=== PATIENT | female | born 1975 | race Caucasian/White ===

== ENCOUNTER 2019-08-03 07:22 | Inpatient (IN) | payer OTHER ==
[2019-08-02 10:56] LABS: BLOOD UREA NITROGEN,BUN 14 mg/dL (7.0-18.0); CARBON DIOXIDE,CO2 28.6 mmol/L (21.0-32.0); CHLORIDE,CL 104 mmol/L (98-107); GLUCOSE RANDOM 99 mg/dL (74-106); POTASSIUM,K 3.9 mmol/L (3.5-5.1); SODIUM,NA 139 mmol/L (136-145)
[~2019-08-03 07:22] MED LIST: Glycopyrrolate 0.2 MG/ML SDV ONE; Ketorolac 30 MG/ML SDV ONE; Lidocaine 2% 5 ML SDV ONE; Midazolam 1 MG/ML 2 ML SDV ONE; Ondansetron 4 MG/2 ML SDV ONE; Propofol 200 MG/20 ML SDV ONE; Rocuronium 100 MG/10 ML Syringe ONE; Sodium Chloride 0.9% 10 ML SDV IV PRN; Sodium Chloride 0.9% 10 ML Syringe FLUSH PRN; Sodium Chloride 0.9% 2.5 ML Syringe FLUSH PRN; Sugammadex Sodium 200 MG/2 ML VIAL ONE; ceFAZolin 2 GM in Premix Bag 1 BAG IV ONE; fentaNYL 250 MCG/5 ML SDV ONE
[2019-08-03] MEDS ORDERED: Sodium Chloride 0.9% 20 ML ONE (07:35)
[2019-08-03] MEDS ORDERED: ceFAZolin 1 GM Vial ONE (07:35)
[2019-08-03] MEDS: Lactated Ringers 1,000 ML IV SCH ×3 (08:15→22:08)
[2019-08-03] MEDS ORDERED: Scopolamine 1.5 MG Transdermal Patch ONE (08:18)
--- NOTE | 2019-08-03 08:18 | PCM.PREANE ---
Preanesthetic Assessment - Anesthesia/Transfusion/Family Hx Anesthesia History: Prior Anesthesia Without Reaction Family History of Anesthesia Reaction: No Transfusion History: No Prior Transfusion(s) Intubation History: Unknown - Review of Systems General: No Symptoms Pulmonary: No Symptoms Cardiovascular: No Symptoms Gastrointestinal: No Symptoms Neurological: No Symptoms Other: Reports: None - Physical Assessment Height: 5 ft 1 in Weight: 98.883 kg ASA Class: 2 Mental Status: Alert & Oriented x3 Airway Class: Mallampati = 3 Dentition: Reports: Normal Dentition Thyro-Mental Finger Breadths: 3 Mouth Opening Finger Breadths: 3 ROM/Head Extension: Full Lungs: Clear to Auscultation, Normal Respiratory Effort Cardiovascular: Regular Rate, Regular Rhythm - Lab Values: Laboratory Last Values WBC 6.34 K/uL (4.0-11.0) 08/02/19 10:32 RBC 4.74 M/uL (4.30-5.90) 08/02/19 10:32 Hgb 10.3 g/dL (12.0-16.0) L 08/02/19 10:32 Hct 35.9 % (36.0-46.0) L 08/02/19 10:32 MCV 75.7 fL (80.0-98.0) L 08/02/19 10:32 MCH 21.7 pg (27.0-32.0) L 08/02/19 10:32 MCHC 28.7 g/dL (31.0-37.0) L 08/02/19 10:32 RDW Std Deviation 57.6 fl (28.0-62.0) 08/02/19 10:32 RDW Coeff of Germán 21 % (11.0-15.0) H 08/02/19 10:32 Plt Count 412 K/uL (150-400) H 08/02/19 10:32 MPV 9.30 fL (7.40-12.00) 08/02/19 10:32 Nucleated RBC % 0.0 /100WBC 08/02/19 10:32 Nucleated RBCs # 0 K/uL 08/02/19 10:32 Sodium 139 mmol/L (136-145) 08/02/19 10:32 Potassium 3.9 mmol/L (3.5-5.1) 08/02/19 10:32 Chloride 104 mmol/L (98-107) 08/02/19 10:32 Carbon Dioxide 28.6 mmol/L (21.0-32.0) 08/02/19 10:32 BUN 14 mg/dL (7.0-18.0) 08/02/19 10:32 Creatinine 0.8 mg/dL (0.6-1.0) 08/02/19 10:32 Est Cr Clr Drug Dosing 66.31 mL/min 08/02/19 10:32 Estimated GFR (MDRD) > 60.0 ml/min 08/02/19 10:32 Glucose 99 mg/dL (74-106) 08/02/19 10:32 Calcium 9.0 mg/dL (8.5-10.1) 08/02/19 10:32 HCG, Qual NEGATIVE (NEG) 08/02/19 10:32 Blood Type O POSITIVE 08/02/19 10:32 Antibody Screen NEGATIVE 08/02/19 10:32 - Allergies Allergies/Adverse Reactions: Allergies Allergy/AdvReac Type Severity Reaction Status Date / Time No Known Allergies Allergy Verified 07/31/19 13:08 - Blood Blood Available: No - Anesthesia Plan Pre-Op Medication Ordered: None - Acknowledgements Anesthesia Type Planned: General Anesthesia Pt an Appropriate Candidate for the Planned Anesthesia: Yes Alternatives and Risks of Anesthesia Discussed w Pt/Guardian: Yes Pt/Guardian Understands and Agrees with Anesthesia Plan: Yes PreAnesthesia Questionnaire HEENT History: Reports: None Cardiovascular History: Reports: Hypertension Respiratory History: Reports: Sleep Apnea Other Respiratory History: uses CPAP Gastrointestinal History: Reports: GERD Genitourinary History: Reports: Renal Calculus DETECTIVE NARCOTICS AND VICE History: Reports: Musculoskeletal History: Reports: None Neurological History: Reports: None Psychiatric History: Reports: None Endocrine/Metabolic History: Reports: Obesity/BMI 30+ (BMI 41.2) Hematologic History: Reports: None Immunologic History: Reports: None Oncologic (Cancer) History: Reports: None Dermatologic History: Reports: None - Past Surgical History Head Surgeries/Procedures: Reports: None HEENT Surgical History: Reports: None Cardiovascular Surgical History: Reports: None Respiratory Surgical History: Reports: None GI Surgical History: Reports: None Female Surgical History: Reports: Section (x2), Kidney stone extraction (x2) Endocrine Surgical History: Reports: None Neurological Surgical History: Reports: None Musculoskeletal Surgical History: Reports: None Oncologic Surgical History: Reports: None Dermatological Surgical History: Reports: None - SUBSTANCE USE Smoking Status *Q: Current Every Day Smoker (1/2 ppd) Tobacco Use Within Last Twelve Months: Cigarettes - HOME MEDS Home Medications: Home Meds Lisinopril 20 mg PO DAILY 08/19/14 [History] Omeprazole 20 mg PO DAILY PRN 08/01/19 [History] - CURRENT (IN HOUSE) MEDS Current Meds: Current Medications Sodium Chloride (Saline Flush) 10 ml FLUSH ASDIRECTED PRN PRN Reason: Keep Vein Open Sodium Chloride (Saline Flush) 2.5 ml FLUSH ASDIRECTED PRN PRN Reason: Keep Vein Open Sodium Chloride (Normal Saline) 10 ml IV ASDIRECTED PRN PRN Reason: IV Use Discontinued Medications Cefazolin Sodium (Ancef) Confirm Administered Dose 2 gm .ROUTE .STK-MED ONE Stop: 08/03/19 07:36 Fentanyl (Sublimaze) Confirm Administered Dose 250 mcg .ROUTE .STK-MED ONE Stop: 08/03/19 07:08 Glycopyrrolate (Robinul) Confirm Administered Dose 0.2 mg .ROUTE .STK-MED ONE Stop: 08/03/19 07:09 Cefazolin Sodium/Dextrose 2 gm (/ Premix) 50 mls @ 100 mls/hr IV ONETIME ONE Stop: 08/02/19 09:31 Sodium Chloride (Normal Saline) Confirm Administered Dose 20 mls @ as directed .ROUTE .STK-MED ONE Stop: 08/03/19 07:36 Ketorolac Tromethamine (Toradol) Confirm Administered Dose 30 mg .ROUTE .STK- MED ONE Stop: 08/03/19 07:09 Lidocaine (Xylocaine-Mpf 2%) Confirm Administered Dose 5 ml .ROUTE .STK-MED ONE Stop: 08/03/19 07:09 Midazolam HCl (Versed 1 Mg/Ml) Confirm Administered Dose 2 mg .ROUTE .STK-MED ONE Stop: 08/03/19 07:08 Ondansetron HCl (Zofran) Confirm Administered Dose 4 mg .ROUTE .STK-MED ONE Stop: 08/03/19 07:09 Propofol (Diprivan 20 Ml) Confirm Administered Dose 200 mg .ROUTE .STK-MED ONE Stop: 08/03/19 07:08 Rocuronium [place] (Zemuron) Confirm Administered Dose 100 mg .ROUTE .STK-MED ONE Stop: 08/03/19 07:09 Sugammadex Sodium (Bridion) Confirm Administered Dose 200 mg .ROUTE .STK-MED ONE Stop: 08/03/19 07:02
[2019-08-03] MEDS ORDERED: Acetaminophen 1,000 MG in Premix Bag 1 BAG IV PRN (08:49)
[2019-08-03] MEDS ORDERED: HYDROmorphone 2 MG/ML Syringe ONE ×2 (08:59→09:49)
[2019-08-03] MEDS ORDERED: Rocuronium 100 MG/10 ML Syringe ONE (09:06)
[2019-08-03] MEDS ORDERED: Promethazine 25 MG/ML SDV IM PRN (11:14)
[2019-08-03] MEDS ORDERED: Ondansetron 4 MG/2 ML SDV IVPUSH PRN (11:14)
[2019-08-03] MEDS ORDERED: Acetaminophen/oxyCODONE 325-5 MG Tab PO PRN (11:14)
[2019-08-03] MEDS ORDERED: Ketorolac 30 MG/ML SDV IVPUSH ONE (11:14)
--- NOTE | 2019-08-03 11:18 | PCM.OPNOTE ---
- General Post-Op/Procedure Note Date of Surgery/Procedure: 08/03/19 Operative Procedure(s): Dignostic laparoscopy. open JONATHAN,BSO cystoscopy. Pre Op Diagnosis: bleeding Post-Op Diagnosis: Same Primary Surgeon: Yosi Sagastume EBL in mLs: 200 Complications: None Condition: Good
[2019-08-03] MEDS ORDERED: HYDROmorphone 2 MG/ML Syringe IVPUSH PRN (11:38)
[2019-08-03] MEDS: fentaNYL 100 MCG/2 ML SDV IVPUSH PRN ×2 (11:49→12:01)
[2019-08-03] MEDS ORDERED: fentaNYL 100 MCG/2 ML SDV ONE (12:06)
--- NOTE | 2019-08-03 13:05 | PCM.POSTAN ---
POST ANESTHESIA ASSESSMENT - MENTAL STATUS Mental Status: Alert (3), Oriented - VITAL SIGNS Vital Signs: Last Vital Signs Temp 36 C L 08/03/19 11:23 Pulse 67 08/03/19 12:52 Resp 11 L 08/03/19 12:52 BP 107/65 08/03/19 12:52 Pulse Ox 99 08/03/19 12:52 - RESPIRATORY Respiratory Status: Respiratory Rate WNL, Airway Patent, O2 Saturation Stable - CARDIOVASCULAR CV Status: Pulse Rate WNL, Blood Pressure Stable - GASTROINTESTINAL GI Status: No Symptoms - PAIN Pain Score: 3 - POST OP HYDRATION Hydration Status: Adequate & Stable - OBSERVATIONS Free Text/Narrative:: No anesthesia problems
[2019-08-03] MEDS: Morphine 4 MG/ML Syringe IVPUSH PRN ×2 (15:11→22:11)
[2019-08-03] MEDS: Ketorolac 30 MG/ML SDV IVPUSH PRN (19:23)
[2019-08-04] MEDS: Ketorolac 30 MG/ML SDV IVPUSH PRN (02:05)
[2019-08-04] MEDS: Acetaminophen/oxyCODONE 325-5 MG Tab PO PRN ×3 (02:47→11:54)
[2019-08-04] MEDS: Morphine 4 MG/ML Syringe IVPUSH PRN ×2 (05:22→15:45)
[2019-08-04] MEDS: Lactated Ringers 1,000 ML IV SCH (06:09)
[2019-08-04 06:20] LABS: BLOOD UREA NITROGEN,BUN 10 mg/dL (7.0-18.0); CARBON DIOXIDE,CO2 26.5 mmol/L (21.0-32.0); CHLORIDE,CL 103 mmol/L (98-107); GLUCOSE RANDOM 105 mg/dL (74-106); SODIUM,NA 135 mmol/L (136-145)
--- NOTE | 2019-08-04 07:15 | PCM48HPAN ---
Post Anesthesia Note - EVALUATION WITHIN 48HRS OF ANESTHETIC Vital Signs in Normal Range: Yes Patient Participated in Evaluation: Yes Respiratory Function Stable: Yes Airway Patent: Yes Cardiovascular Function Stable: Yes Hydration Status Stable: Yes Pain Control Satisfactory: Yes (Having pain. Analgesics help. Analgesics being given.) Nausea and Vomiting Control Satisfactory: Yes Mental Status Recovered: Yes Vital Signs: Last Vital Signs Temp 36.0 C L 08/04/19 04:27 Pulse 78 08/04/19 04:27 Resp 18 08/04/19 04:27 BP 141/60 H 08/04/19 04:27 Pulse Ox 95 08/04/19 04:27 - COMMENTS/OBSERVATIONS Free Text/Narrative:: Doing well considering surgery.
[2019-08-04 12:55] VITALS: BP 146/73; PULSE 96
--- NOTE | 2019-08-04 13:25 | OR ---
SURGEON: Yosi Sagastume MD DATE OF PROCEDURE: 08/03/2019 PREOPERATIVE DIAGNOSES: Menometrorrhagia, pelvic pain, fibroid uterus. POSTOPERATIVE DIAGNOSES: Menometrorrhagia, pelvic pain, fibroid uterus. OPERATION PERFORMED: An attempted laparoscopic hysterectomy, aborted because of severe pelvic adhesion, and then a total abdominal hysterectomy with bilateral salpingo- oophorectomy through transverse Maylard skin incision and cystoscopy. 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 ANESTHESIA: General. Varinder Corley and Dr. Finnegan. ESTIMATED BLOOD LOSS: 250 mL. COMPLICATIONS: None. FINDING: The laparoscopic finding shows a very dense adhesion between the anterior part of the uterus and the bladder where the omentum is completely adhesed and obstructing the clear view of proceeding with the surgery. There was omental adhesion around the right tube and ovary and there is adhesion in the cul-de- sac. PROCEDURE IN DETAIL: The patient was brought to the OR, properly identified, and after adequate level of general anesthesia, the patient was placed in lithotomy position with access to the abdomen and the vagina. Weighted speculum was placed in the vagina and then the Yi catheter was placed in the bladder and then the Cooper[employer] colpotomizer and manipulator were placed in the uterus for manipulation. The operation shifted abdominally. Stab wound done beneath the umbilicus. The Veress needle was placed in the peritoneal cavity and that cavity insufflated with 3.5 L of carbon dioxide, and then utilizing the Visiport technique, 5 mm trocar is inserted and then 5 mm scope through that trocar. Under direct vision, a 10/12 trocar was placed in the right iliac fossa. At this time, there was a dense adhesion as described in the finding. I attempted to lyse the adhesion hopefully achieving the hysterectomy laparoscopically, but after a while, it became apparent that the vision is totally obstructed and I could not accomplish laparoscopic hysterectomy completely safe, so we abandoned this route and we proceeded to the total abdominal hysterectomy and after repositioning the patient, low transverse skin incision through the old scar of her section was done. Francis fascia and rectus fascia were opened in the direction of the incision and then the inferior epigastric vessels is clamped and transected and suture ligated bilaterally after retracting the rectus muscle medially. Once that was done, then the rectus muscle is cut transversely, utilizing the electrocautery. Once this was done, then the peritoneal cavity was entered. After we entered the peritoneal cavity, I explored the abdomen, making sure there was no issue and there was no injury from the brief laparoscopic part of the procedure and it became apparent there was none, then I used a Metzenbaum and with sharp and blunt and meticulous slow lysing of the adhesions, the omentum was lysed from its attachment to the bladder and to the uterus and to the right tubes and ovary. Once I was able to do that, then the abdominal pack is placed to pack the intestine and omentum away from the operative field. We proceeded by doing the hysterectomy. The round ligament from both sides was suture ligated with 2-0 Vicryl pop-off and then transected and superior pedicle was dissected and the superior pedicle was clamped with curved Zeppelin. The tubes and ovary included with the specimen and the superior pedicle was tied twice with 0 Vicryl on both sides and the anterior leaf of the broad ligament dissected downward medially and then the bladder dissected completely away from the operative field. The uterine vessel is taken at this time using curved Zeppelin, transected, and suture ligated with 2-0 Vicryl pop-off and the uterosacral ligament was taken with a straight Zeppelin, transected, and suture ligated with 2-0 Vicryl pop-off. At this time, I entered the vagina anteriorly and using Jean scissors, circular incision around the vagina was done, detaching the cervix from its attachment to the vagina. The uterus and both tubes and ovary were removed and then we proceeded to close the vaginal cuff with 2-0 Vicryl interrupted [id number] sutures. Once that was done, I went back and checked. The ureter was felt to be intact and there was no oozing or bleeding; however, to make sure that there was no ureteric injury, we asked the anesthesiologist to give the patient fluorescein and I did cystoscopy. The bladder was intact. Both ureteric orifices were seen with the dye coming from both of them; thus, satisfied with these findings and then reinspection of the operative field shows no oozing, no bleeding. The vaginal pack was removed and the abdominal wall is closed in layers, the peritoneum with 3-0 Vicryl and the rectus fascia with #1 PDS double strand continuous, the Francis's fascia with 3-0 Vicryl, and the skin with skin clip, Insorb, and Dermabond. The instrument and sponge count were correct. The patient tolerated the procedure well, went to recovery room in stable general condition. RADHA PARDO /[id number]
--- NOTE | 2019-08-04 14:43 | PCM.SURGPN ---
- General Info Date of Service: 08/04/19 POD#: 1 Functional Status: Reports: Pain Controlled - Review of Systems General: Reports: No Symptoms HEENT: Reports: No Symptoms Pulmonary: Reports: No Symptoms Cardiovascular: Reports: No Symptoms Gastrointestinal: Reports: No Symptoms Genitourinary: Reports: No Symptoms Musculoskeletal: Reports: No Symptoms Skin: Reports: No Symptoms Neurological: Reports: No Symptoms Psychiatric: Reports: No Symptoms - Patient Data Vitals - Most Recent: Last Vital Signs Temp 37.6 C 08/04/19 12:53 Pulse 96 08/04/19 12:53 Resp 18 08/04/19 12:53 BP 146/73 H 08/04/19 12:53 Pulse Ox 95 08/04/19 12:53 Weight - Most Recent: 98.883 kg I&O - Last 24 Hours: Intake & Output 08/03/19 08/04/19 08/04/19 22:59 06:59 14:59 Intake Total 1250 2441 Output Total 830 2500 Balance 420 -59 Lab Results Last 24 Hrs: Laboratory Results - last 24 hr 08/04/19 08/04/19 Range/Units 05:05 05:05 WBC 7.37 (4.0-11.0) K/uL RBC 3.84 L (4.30-5.90) M/uL Hgb 8.6 L (12.0-16.0) g/dL Hct 28.9 L (36.0-46.0) % MCV 75.3 L (80.0-98.0) fL MCH 22.4 L (27.0-32.0) pg MCHC 29.8 L (31.0-37.0) g/dL RDW Std Deviation 56.3 (28.0-62.0) fl RDW Coeff of Germán 21 H (11.0-15.0) % Plt Count 375 (150-400) K/uL MPV 9.60 (7.40-12.00) fL Neut % (Auto) 64.8 (48.0-80.0) % Lymph % (Auto) 24.3 (16.0-40.0) % [place]ison % (Auto) 9.6 (0.0-15.0) % Eos % (Auto) 1.2 (0.0-7.0) % Baso % (Auto) 0.1 (0.0-1.5) % Neut # (Auto) 4.8 (1.4-5.7) K/uL Lymph # (Auto) 1.8 (0.6-2.4) K/uL [place] # (Auto) 0.7 (0.0-0.8) K/uL Eos # (Auto) 0.1 (0.0-0.7) K/uL Baso # (Auto) 0.0 (0.0-0.1) K/uL Nucleated RBC % 0.0 /100WBC Nucleated RBCs # 0 K/uL Sodium 135 L (136-145) mmol/L Potassium 4.0 (3.5-5.1) mmol/L Chloride 103 (98-107) mmol/L Carbon Dioxide 26.5 (21.0-32.0) mmol/L BUN 10 (7.0-18.0) mg/dL Creatinine 0.8 (0.6-1.0) mg/dL Est Cr Clr Drug Dosing 66.31 mL/min Estimated GFR (MDRD) > 60.0 ml/min Glucose 105 (74-106) mg/dL Calcium 8.3 L (8.5-10.1) mg/dL Med Orders - Current: Current Medications Acetaminophen 1,000 mg/ Premix 100 mls @ 400 mls/hr IV Q6H PRN PRN Reason: Pain Last Admin: 08/03/19 12:41 Dose: 400 mls/hr Lactated Ringer's (Ringers, Lactated) 1,000 mls @ 125 mls/hr IV ASDIRECTED [facility] Last Admin: 08/04/19 06:09 Dose: 125 mls/hr Ketorolac Tromethamine (Toradol) 30 mg IVPUSH Q6H PRN PRN Reason: Pain (severe 7-10) Stop: 08/08/19 11:14 Last Admin: 08/04/19 02:05 Dose: 30 mg Morphine Sulfate (Morphine) 4 mg IVPUSH Q2H PRN PRN Reason: Pain (severe 7-10) Last Admin: 08/04/19 05:22 Dose: 4 mg Ondansetron HCl (Zofran) 4 mg IVPUSH Q6H PRN PRN Reason: Nausea/Vomiting Oxycodone/Acetaminophen (Percocet 325-5 Mg) 1 tab PO Q4H PRN PRN Reason: Pain (moderate 4-6) Last Admin: 08/04/19 11:54 Dose: 1 tab Oxycodone/Acetaminophen (Percocet 325-5 Mg) 2 tab PO Q4H PRN PRN Reason: Pain (moderate 4-6) Promethazine HCl (Phenergan) 25 mg IM Q6H PRN PRN Reason: Nausea/Vomiting Sodium Chloride (Saline Flush) 2.5 ml FLUSH ASDIRECTED PRN PRN Reason: Keep Vein Open Sodium Chloride (Normal Saline) 10 ml IV ASDIRECTED PRN PRN Reason: IV Use Discontinued Medications Cefazolin Sodium (Ancef) Confirm Administered Dose 2 gm .ROUTE .STK-MED ONE Stop: 08/03/19 07:36 Fentanyl (Sublimaze) Confirm Administered Dose 250 mcg .ROUTE .STK-MED ONE Stop: 08/03/19 07:08 Fentanyl (Sublimaze) 50 mcg IVPUSH Q5M PRN PRN Reason: Pain Last Admin: 08/03/19 12:01 Dose: 50 mcg Fentanyl (Sublimaze) Confirm Administered Dose 100 mcg .ROUTE .STK-MED ONE Stop: 08/03/19 12:07 Last Admin: 08/03/19 13:41 Dose: Not Given Glycopyrrolate (Robinul) Confirm Administered Dose 0.2 mg .ROUTE .STK-MED ONE Stop: 08/03/19 07:09 Hydromorphone HCl (Dilaudid) Confirm Administered Dose 2 mg .ROUTE .STK-MED ONE Stop: 08/03/19 09:00 Hydromorphone HCl (Dilaudid) Confirm Administered Dose 2 mg .ROUTE .STK-MED ONE Stop: 08/03/19 09:50 Hydromorphone HCl (Dilaudid) 1 - 2 mg IVPUSH ONETIME PRN PRN Reason: Pain Cefazolin Sodium/Dextrose 2 gm (/ Premix) 50 mls @ 100 mls/hr IV ONETIME ONE Stop: 08/02/19 09:31 Last Admin: 08/03/19 13:41 Dose: Not Given Sodium Chloride (Normal Saline) Confirm Administered Dose 20 mls @ as directed .ROUTE .STK-MED ONE Stop: 08/03/19 07:36 Acetaminophen (Ofirmev) Confirm Administered Dose 100 mls @ as directed .ROUTE .STK-MED ONE Stop: 08/03/19 12:27 Ketorolac Tromethamine (Toradol) Confirm Administered Dose 30 mg .ROUTE .STK- MED ONE Stop: 08/03/19 07:09 Ketorolac Tromethamine (Toradol) 30 mg IVPUSH ONETIME ONE Stop: 08/03/19 11:15 Last Admin: 08/03/19 10:50 Dose: Not Given Lidocaine (Xylocaine-Mpf 2%) Confirm Administered Dose 5 ml .ROUTE .STK-MED ONE Stop: 08/03/19 07:09 Midazolam HCl (Versed 1 Mg/Ml) Confirm Administered Dose 2 mg .ROUTE .STK-MED ONE Stop: 08/03/19 07:08 Ondansetron HCl (Zofran) Confirm Administered Dose 4 mg .ROUTE .STK-MED ONE Stop: 08/03/19 07:09 Propofol (Diprivan 20 Ml) Confirm Administered Dose 200 mg .ROUTE .STK-MED ONE Stop: 08/03/19 07:08 Rocuronium [place] (Zemuron) Confirm Administered Dose 100 mg .ROUTE .STK-MED ONE Stop: 08/03/19 07:09 Rocuronium [place] (Zemuron) Confirm Administered Dose 100 mg .ROUTE .STK-MED ONE Stop: 08/03/19 09:07 Scopolamine (Transderm-Scop) Confirm Administered Dose 1.5 mg .ROUTE .STK-MED ONE Stop: 08/03/19 08:19 Last Admin: 08/03/19 08:20 Dose: 1.5 mg Sodium Chloride (Saline Flush) 10 ml FLUSH ASDIRECTED PRN PRN Reason: Keep Vein Open Sugammadex Sodium (Bridion) Confirm Administered Dose 200 mg .ROUTE .STK-MED ONE Stop: 08/03/19 07:02 - Exam Wound/Incisions: Healing Well General: Alert, Oriented HEENT: Pupils Equal Neck: Supple Lungs: Clear to Auscultation, Normal Respiratory Effort Cardiovascular: Regular Rate, Regular Rhythm GI/Abdominal Exam: Normal Bowel Sounds, Soft, Non-Tender, No Organomegaly, No Distention, No Abnormal Bruit, No Mass, Pelvis Stable Extremities: Normal Inspection, Normal Range of Motion, Non-Tender, No Pedal Edema, Normal Capillary Refill Skin: Warm, Dry, Intact Neurological: No New Focal Deficit Psy/Mental Status: Alert, Normal Affect, Normal Mood Sepsis Event Note - Evaluation Sepsis Screening Result: No Definite Risk - Focused Exam Vital Signs: Vital Signs Temp Pulse Resp BP Pulse Ox 08/04/19 12:53 37.6 C 96 18 146/73 H 95 08/04/19 08:00 36.9 C 86 18 128/69 96 08/04/19 04:27 36.0 C L 78 18 141/60 H 95 Date Exam was Performed: 08/04/19 Time Exam was Performed: 14:41 - Problem List Review Problem List Initiated/Reviewed/Updated: Yes - My Orders Last 24 Hours: Active Orders 24 hr Category Date Time Status Regular Diet [DIET] Diet 08/03/19 Dinner Active Medication Orders Acetaminophen 1,000 mg/ Premix 100 mls @ 400 mls/hr IV Q6H PRN PRN Reason: Pain Last Admin: 08/03/19 12:41 Dose: 400 mls/hr Lactated Ringer's (Ringers, Lactated) 1,000 mls @ 125 mls/hr IV ASDIRECTED [facility] Last Admin: 08/04/19 06:09 Dose: 125 mls/hr Infusion: 08/04/19 06:08 Dose: 125 mls/hr Admin: 08/03/19 22:08 Dose: 125 mls/hr Infusion: 08/03/19 21:22 Dose: 125 mls/hr Admin: 08/03/19 13:22 Dose: 125 mls/hr Infusion: 08/03/19 13:22 Dose: 125 mls/hr Admin: 08/03/19 08:15 Dose: 125 mls/hr Ketorolac Tromethamine (Toradol) 30 mg IVPUSH Q6H PRN PRN Reason: Pain (severe 7-10) Stop: 08/08/19 11:14 Last Admin: 08/04/19 02:05 Dose: 30 mg Admin: 08/03/19 19:23 Dose: 30 mg Morphine Sulfate (Morphine) 4 mg IVPUSH Q2H PRN PRN Reason: Pain (severe 7-10) Last Admin: 08/04/19 05:22 Dose: 4 mg Admin: 08/03/19 22:11 Dose: 4 mg Admin: 05/21/20 15:11 Dose: 4 mg Ondansetron HCl (Zofran) 4 mg IVPUSH Q6H PRN PRN Reason: Nausea/Vomiting Oxycodone/Acetaminophen (Percocet 325-5 Mg) 1 tab PO Q4H PRN PRN Reason: Pain (moderate 4-6) Last Admin: 08/04/19 11:54 Dose: 1 tab Admin: 08/04/19 06:54 Dose: 1 tab Admin: 08/04/19 02:47 Dose: 1 tab Oxycodone/Acetaminophen (Percocet 325-5 Mg) 2 tab PO Q4H PRN PRN Reason: Pain (moderate 4-6) Promethazine HCl (Phenergan) 25 mg IM Q6H PRN PRN Reason: Nausea/Vomiting Sodium Chloride (Saline Flush) 2.5 ml FLUSH ASDIRECTED PRN PRN Reason: Keep Vein Open Sodium Chloride (Normal Saline) 10 ml IV ASDIRECTED PRN PRN Reason: IV Use - Assessment Assessment (Free Text/Narrative):: Status post exploratory laparotomy for total abdominal hysterectomy and bilateral salpingo-oophorectomy postoperative day #1 the patient is afebrile. Vital signs stable she is on regular diet she is voiding without any problem. - Plan Plan (Free Text/Narrative):: The patient expressed her desire to go home there is no contraindication for that prescription for Narco 5/325 for postoperative pain is given to the patient the postoperative instruction is given to her there is no restriction on her diet she is coming to the office sometime next week for late postoperative examination. The patient instructed if she have any problem she can come back to the hospital
== END 2019-08-04 19:01 | disposition home or self-care (01) | DRG 743 ==
LOC: MW.SDS 07:22 → MW.MS 11:14
PROVIDERS: ADMIT Obstetrics & Gynecology; ATTEND Obstetrics & Gynecology
PROC: 0UT90ZZ Resection of Uterus, Open Approach (ICD-10-PCS; principal; 2019-08-03)
PROC: 0UB70ZZ Excision of Bilateral Fallopian Tubes, Open Approach (ICD-10-PCS; 2019-08-03)
PROC: 0UT20ZZ Resection of Bilateral Ovaries, Open Approach (ICD-10-PCS; 2019-08-03)
PROC: 0UJD4ZZ Inspection of Uterus and Cervix, Percutaneous Endoscopic Approach (ICD-10-PCS; 2019-08-03)
DX: D25.9 Leiomyoma of uterus, unspecified (principal)
CPT/HCPCS: 36415; 80048; 84703; 85025; 85027; 86850; 86900; 86901; A9270-GY; J0131; J0690; J1170; J1885; J2001; J2250; J2270; J2405; J2704; J3010; J3490; J7120